=== PATIENT | male | born 1970 | race Caucasian/White ===

== ENCOUNTER 2023-09-28 15:24 | Emergency (ER) | payer SELFPAY ==
[2023-09-28] MEDS: cloNIDine 0.1 MG Tab PO ONE ×2 (16:37→18:10)
[2023-09-28] MEDS: Metoprolol Tartrate 50 MG Tab PO ONE (18:10)
== END 2023-09-28 20:22 | disposition home or self-care (01) ==
LOC: JD.ED 15:24
DX: M79.604 Pain in right leg (principal); I10 Essential (primary) hypertension; J45.20 Mild intermittent asthma, uncomplicated; F17.210 Nicotine dependence, cigarettes, uncomplicated; Z79.899 Other long term (current) drug therapy
CPT/HCPCS: 93971; 99283; A9270